=== PATIENT | female | born 1955 | race Caucasian/White ===

== ENCOUNTER → 2016-07-13 | Outpatient (CLI) | payer MEDICARE | LOC: GMAM 16:54 | PROVIDERS: ATTEND Family Medicine | DX: R30.0 Dysuria (principal); E03.9 Hypothyroidism, unspecified ==

== ENCOUNTER → 2016-10-12 | Outpatient (CLI) | payer MEDICARE | END | disposition home or self-care (01) | LOC: GMAM 10:15 | PROVIDERS: ATTEND Family Medicine | DX: D51.3 Other dietary vitamin B12 deficiency anemia (principal); E03.9 Hypothyroidism, unspecified ==

== ENCOUNTER → 2016-10-25 | Outpatient (CLI) | payer MEDICARE ==
--- NOTE | 2016-10-25 16:54 | MAM ---
History: Well woman exam. Date of exam: 10/25/2016 Services provided: Bilateral full field digital screening mammography. CAD, the images were reviewed with R2 computer aided detection. FINDINGS: Glandular tissue is scattered nodular contour with increased mammographic density. Comparison with 2011 study. No dominant mass, architectural distortion or clustered microcalcification. No significant change in pattern when compared with remote study. IMPRESSION: Benign exam Recommendation: Routine annual mammography BIRAD CATEGORY: 2 BENIGN . Electronically signed by: Janis Carmen MD 10/25/2016 4:54 PM CDT Workstation: [id number]
== END | disposition home or self-care (01) ==
LOC: MAMMO 14:30
PROVIDERS: ATTEND Family Medicine
DX: Z12.31 Encounter for screening mammogram for malignant neoplasm of breast (principal)

== ENCOUNTER → 2016-12-14 | Outpatient (CLI) | payer MEDICARE ==
--- NOTE | 2016-12-15 10:55 | MRI ---
EXAM DESCRIPTION: Cervical Spine CLINICAL HISTORY: 61 years, Female, CERVICAL DISC DISORDER neck pain, right shoulder pain COMPARISON: None. FINDINGS: Sagittal and axial sequences. Bone marrow and cord signal unremarkable. Reversal of cervical lordosis compatible muscular spasm. C2-3 unremarkable. Minimal bulge centrally to the left C3-4. At C4-5 small central broad-based protrusion slightly flattening thecal sac. At C5-6, diffuse bulging disc osteophyte asymmetric to the left. Facet degenerative change. Flattening and left-sided thecal sac and narrowing the left exit foramen. At C6-7, broad-based right-sided protrusion about 4 mm flattens the thecal sac and narrows the exit foramen. C7-T1 unremarkable. IMPRESSION: 1. Broad-based right-sided protrusion C6-7 flattening the thecal sac and narrowing the right exit foramen 2. Diffuse bulging disc osteophyte C5-6 asymmetric to the left. Flattening the left-sided thecal sac and narrowing the left exit foramen 3. Mild disc changes C4-5 and C3-4 as discussed. Reversal of cervical lordosis compatible muscular spasm Electronically signed by: Ryan Jenkins MD 12/15/2016 10:53 AM CDT
--- NOTE | 2016-12-15 12:00 | MRI ---
EXAM DESCRIPTION: Lumbar Spine w/o Contrast CLINICAL HISTORY: 61 years, Female, LOW BACK PAIN bilateral leg pain and numbness COMPARISON: None. FINDINGS: Sagittal and axial sequences. Chronic appearing compression injury of the L1 vertebral body. Compression deformity predominantly involves the anterior inferior portion extending to the mid body. This may have been a hyperflexion injury. Anterior height of L1 about 7 mm versus about 2.7 cm of L2. Other visualized vertebral bodies have normal height and marrow signal. Conus terminates at L1. About 3 mm retrolisthesis L1-2 with bulging disc osteophyte asymmetric to the left. Facet degenerative change. Slight left foraminal narrowing and lateral recess encroachment. Mild narrowing and bulging disc L2-3 with facet degenerative change. No significant stenosis. At L3-4 diffuse bulging disc asymmetric to the right. Slight right foraminal narrowing and probable slight impingement on the exiting right L3 root. Mild bulge and facet degenerative change L4-5 without significant stenosis. L5-S1 within normal IMPRESSION: 1. Chronic appearing moderate anterior inferior compression L1. Slight retrolisthesis L1-2 with bulging disc osteophyte asymmetric to the left. Slight left foraminal narrowing and lateral recess encroachment. 2. Diffuse bulging disc L3-4 asymmetric to the right with probable impingement on the exiting right L3 root 3. Other mild disc changes present as discussed Electronically signed by: Ryan Jenkins MD 12/15/2016 11:58 AM CDT
== END | disposition home or self-care (01) ==
LOC: MRI 13:03
PROVIDERS: ATTEND Psychiatry & Neurology Neurology
DX: M50.01 Cervical disc disorder with myelopathy, high cervical region (principal); G61.81 Chronic inflammatory demyelinating polyneuritis; M35.1 Other overlap syndromes; G47.33 Obstructive sleep apnea (adult) (pediatric)

== ENCOUNTER → 2017-02-24 | Outpatient (CLI) | payer MEDICARE | END | disposition home or self-care (01) | LOC: GMA 14:41 | PROVIDERS: ATTEND Physician Assistant | DX: N39.0 Urinary tract infection, site not specified (principal) ==

== ENCOUNTER → 2017-04-25 | Outpatient (CLI) | payer MEDICARE | END | disposition home or self-care (01) | LOC: GMAM 15:46 | PROVIDERS: ATTEND Family Medicine | DX: E03.9 Hypothyroidism, unspecified (principal); E53.8 Deficiency of other specified B group vitamins ==

== ENCOUNTER → 2017-05-23 | Outpatient (CLI) | payer MEDICARE | END | disposition home or self-care (01) | LOC: GMA 14:49 | PROVIDERS: ATTEND Physician Assistant | DX: N39.0 Urinary tract infection, site not specified (principal) ==

== ENCOUNTER → 2017-06-17 | Outpatient (CLI) | payer MEDICARE | END | disposition home or self-care (01) | LOC: GMAM 14:10 | PROVIDERS: ATTEND Family Medicine | DX: N39.0 Urinary tract infection, site not specified (principal) ==

== ENCOUNTER → 2017-11-15 | Outpatient (CLI) | payer MEDICARE | LOC: GMAM 10:44 | PROVIDERS: ATTEND Family Medicine | DX: E03.9 Hypothyroidism, unspecified (principal); D51.9 Vitamin B12 deficiency anemia, unspecified ==

== ENCOUNTER → 2018-02-07 | Outpatient (CLI) | payer MEDICARE | LOC: GMATM 19:36 | PROVIDERS: ATTEND Nurse Practitioner Family | DX: N39.0 Urinary tract infection, site not specified (principal) ==

== ENCOUNTER → 2018-04-25 | Outpatient (CLI) | payer MEDICARE | LOC: GMAM 11:09 | PROVIDERS: ATTEND Family Medicine | DX: R07.2 Precordial pain (principal); E03.9 Hypothyroidism, unspecified ==

== ENCOUNTER 2018-04-27 10:36 | Emergency (ER) | payer MEDICARE ==
[2018-04-27 10:50] VITALS: TEMP 98.3
--- NOTE | 2018-04-27 11:42 | CT ---
PROCEDURE: CT Lumbar Spine Without Intravenous Contrast CLINICAL INDICATION: The patient is 63 years old and is Female; fall with severe pain approx l2-3 TECHNIQUE: Axial computed tomography images of the lumbar spine without intravenous contrast. Sagittal and coronal reformatted images were created and reviewed. COMPARISON: Prior lumbar spine magnetic resonance imaging from 12/14/2016 FINDINGS: VERTEBRAE: There is a new inferior endplate compression presumed osteoporotic fracture anteriorly involving the T12 vertebral body with relative height preservation at this time. The fracture does extend to the posterior inferior endplate with minimal buckling and no overt retropulsion. There is a stable L1 vertebral body inferior endplate compression fracture with 35 percent loss of height and mild retropulsion. There is NO fracture or malalignment identified in the lumbar spine from L2-L4. There are 5 non-rib bearing lumbar vertebral bodies. Vertebral body heights are maintained from L2-L4. Alignment is maintained. The spinous processes and the transverse processes are intact. OTHER BONES/JOINTS: There is an old healed LEFT 12th rib fracture. It is located medially. DISCS/SPINAL CANAL/NEURAL FORAMINA: The disc spaces are intact. There is NO large disc herniation with no significant disc bulges at the lower levels. SOFT TISSUES: Unremarkable. VASCULATURE: There are atheromatous vascular calcifications of the aortoiliac system. PANCREAS: There are fatty involutional changes of the pancreas. NO findings to suggest pancreatitis. OTHER FINDINGS: There is NO paravertebral hematoma. IMPRESSION: 1. There is a new inferior endplate compression presumed osteoporotic fracture anteriorly involving the T12 vertebral body with relative height preservation at this time. The fracture does extend to the posterior inferior endplate with minimal buckling and no overt retropulsion. This fracture appears to be acute. 2. There is a stable L1 vertebral body inferior endplate compression fracture with 35 percent loss of height and mild retropulsion. Electronically signed by: Gilmar Rapp MD 04/27/2018 11:40 AM [employer]
--- NOTE | 2018-04-27 11:46 | RAD ---
PROCEDURE: XR Left Wrist Complete, 3 or More Views CLINICAL INDICATION: The patient is 63 years old and is Female; fall last night, ulnar sided pain TECHNIQUE: PA, oblique and lateral radiographs of the LEFT wrist were performed without prior studies submitted for comparison. COMPARISON: No relevant prior studies available. FINDINGS: BONES/JOINTS: There is NO acute fracture or dislocation in the LEFT wrist. There is mild degeneration of the 1st carpometacarpal joint and involving the carpal rows. There is neutral ulnar variance. The scapholunate distance is intact. The scaphoid is intact. The joint spaces are maintained. There is mild bony demineralization. The ulnar styloid is intact. SOFT TISSUES: There is NO radiopaque foreign body. There is no appreciable soft tissue swelling. IMPRESSION: 1. There is NO acute fracture or dislocation in the LEFT wrist. 2. There is mild degeneration of the 1st carpometacarpal joint and involving the carpal rows. Electronically signed by: Gilmar Rapp MD 04/27/2018 11:45 AM [facility]
[2018-04-27] MEDS ORDERED: MORPHINE SULFATE INJ 10 MG/ML VIAL IV ONE ×2 (12:20→16:57)
--- NOTE | 2018-04-27 12:28 | ED.PDOC ---
History of Present Illness - General Chief Complaint: Back Pain or Injury Stated Complaint: low back pain Time Seen by Provider: 04/27/18 10:42 Source: patient, family Exam Limitations: no limitations - History of Present Illness Initial Comments: The patient is a 63-year-old female presenting to the emergency room after having fallen backwards last night. She landed on her rear end but is having pain in her upper lumbar to lower thoracic spine. No new neurological changes. She has had a previous compression fracture before. She does have chronic neuropathy and decreased sensation to bilateral lower extremities. No new weakness and no incontinence. There is no visible bruising. The patient is having a very difficult time getting around and performing her activities of daily living. She is morbidly obese. the patient has a history of morbid obesity, mixed connective tissue disease, rheumatoid arthritis, peripheral neuropathy, chronic back pain, gastroesophageal reflux disease, hypercholesterolemia, coronary artery disease, Graves' disease, recurrent urinary tract infections. Severity: severe Improving Factors: immobilization Worsening Factors: movement Associated Symptoms: denies symptoms Allergies/Adverse Reactions: Allergies Pantoprazole [From Protonix] Allergy (Verified 07/19/12 08:43) Penicillins Allergy (Verified 07/19/12 08:43) Home Medications: Ambulatory Orders Aspirin [Aspirin EC] 81 mg PO DAILY 04/08/14 Atorvastatin Calcium [Lipitor] 40 mg PO DAILY 04/08/14 Bifidobacterium Infantis [Align] 4 mg PO DAILY 04/08/14 Furosemide [Lasix] 40 mg PO DAILY 04/08/14 HYDROcodone 10MG/APAP 325MG [[place] 10/325] 2 tab PO TID 04/08/14 Hydroxychloroquine [Plaquenil] 200 mg PO BID 04/08/14 Levothyroxine Sodium [Synthroid] 137 mcg PO 0700 04/08/14 Morphine Sulfate [Morphine Sulfate ER] 30 mg PO TID 04/08/14 Pregabalin [Lyrica] 100 mg PO BID 04/08/14 Docusate Sodium 200 mg PO DAILY 04/27/18 Omeprazole Magnesium [Prilosec Otc] 20 mg PO DAILY 04/27/18 Potassium Chloride [Micro-K] 10 meq PO DAILY 04/27/18 Venlafaxine HCl [Effexor Tab] 150 mg PO DAILY 04/27/18 predniSONE 20 mg PO DAILY 04/27/18 Review of Systems - Review of Systems Constitutional: States: no symptoms reported EENTM: States: no symptoms reported Respiratory: States: no symptoms reported Cardiology: States: no symptoms reported Gastrointestinal/Abdominal: States: no symptoms reported Genitourinary: States: no symptoms reported Musculoskeletal: States: see HPI, back pain Skin: States: no symptoms reported Neurological: States: see HPI Endocrine: States: no symptoms reported All other Systems: No Change from Baseline Past Medical History (General) - Patient Medical History Hx Seizures: No Hx Stroke: No Hx Asthma: No Hx of COPD: Yes Hx Cardiac Disorders: Yes - CAD and stints Hx Congestive Heart Failure: No Hx Pacemaker: No Hx Hypertension: No Hx Diabetes: No Hx MRSA: Yes - Urine 2014, 2015 MRSA Source:: Urine - Vaccination History Hx Influenza Vaccination: Yes Hx Pneumococcal Vaccination: No - Social History Hx Tobacco Use: Yes Hx Alcohol Use: No Hx Substance Use: No Hx Physical Abuse: No Hx Emotional Abuse: No Family Medical History - Family History Mother Family History: Unknown Physical Exam - Physical Exam General Appearance: Alert, Comfortable, No apparent distress Eye Exam: bilateral normal Ears, Nose, Throat: hearing grossly normal, normal ENT inspection, normal pharynx Neck: full range of motion, supple Respiratory: lungs clear, normal breath sounds, no respiratory distress, no accessory muscle use Cardiovascular/Chest: normal peripheral pulses, no edema, other - regular rate Peripheral Pulses: radial,right: 2+, radial,left: 2+, dorsalis pedis,right: 2+, dorsalis pedis,left: 2+ Gastrointestinal/Abdominal: non tender, soft Rectal Exam: deferred Back Exam: CVA tenderness (R), CVA tenderness (L), muscle spasm, vertebral tenderness Extremity: non-tender, normal inspection, normal capillary refill 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 The patient is in significant pain and unable to perform her activities of daily living. She would benefit from an admission for pain control and significant rehabilitation to get her back to a functional state. The patient has received a dose of morphine here. [facility] rehabilitation has been contacted for potential placement for purposes as stated above. Sebastian wrap will be used on the left wrist. she could benefit from evaluation by a spinal surgeon to see if it would be worthwhile to perform kyphoplasty on her in the coming weeks to prevent further increase in chronic pain issues as well as further limitations over time given her osteoporosis. the patient may also benefit from some form of a external stabilization device, such as a TLSO. Given her body habitus however this may prove somewhat difficult. 04/27/18 12:36 04/27/18 15:17 Dr. Cohen from [facility] as requested that we discussed the patient with neurosurgery prior to any acceptance. Dr. Bran, neurosurgery has been consulted by phone on the patient. Based upon the history, exam and radiological findings relayed to him agrees with the TLSO and pain control. Plan on transfer. - Results/Orders Results/Orders: CT scan of the lumbar spine shows what appears to be a new compression fracture at the inferior endplate of T12. It does extend posterior inferiorly but there is no focal buckling or retropulsion. There does appear to be an old L1 fracture that is stable. It does have significant height loss however. X-ray of the left wrist shows no evidence of dislocation or fracture. Departure - Departure Clinical Impression: Inability to perform activities of daily living Compression fracture of thoracic vertebra Qualifiers: Encounter type: initial encounter Fracture type: closed Qualified Code(s): S22.000A - Wedge compression fracture of unspecified thoracic vertebra, initial encounter for closed fracture Left wrist sprain Qualifiers: Encounter type: initial encounter Qualified Code(s): S63.502A - Unspecified sprain of left wrist, initial encounter Fall in home Qualifiers: Encounter type: initial encounter Qualified Code(s): W19.XXXA - Unspecified fall, initial encounter Disposition: Discharge to Rehab Facility Condition: Fair Departure Forms: ED Discharge - Pt. Copy, Patient Portal Self Enrollment Diet: regular diet Referrals: Gary Lee MD [Primary Care Provider] - 1-2 Weeks Home Medications: Ambulatory Orders Aspirin [Aspirin EC] 81 mg PO DAILY 04/08/14 Atorvastatin Calcium [Lipitor] 40 mg PO DAILY 04/08/14 Bifidobacterium Infantis [Align] 4 mg PO DAILY 04/08/14 Furosemide [Lasix] 40 mg PO DAILY 04/08/14 HYDROcodone 10MG/APAP 325MG [[place] 10/325] 2 tab PO TID 04/08/14 Hydroxychloroquine [Plaquenil] 200 mg PO BID 04/08/14 Levothyroxine Sodium [Synthroid] 137 mcg PO 0700 04/08/14 Morphine Sulfate [Morphine Sulfate ER] 30 mg PO TID 04/08/14 Pregabalin [Lyrica] 100 mg PO BID 04/08/14 Docusate Sodium 200 mg PO DAILY 04/27/18 Omeprazole Magnesium [Prilosec Otc] 20 mg PO DAILY 04/27/18 Potassium Chloride [Micro-K] 10 meq PO DAILY 04/27/18 Venlafaxine HCl [Effexor Tab] 150 mg PO DAILY 04/27/18 predniSONE 20 mg PO DAILY 04/27/18 Transfer to Outside Facility - Transfer Information Accepting Provider:: dr cohen Accepting Facility: [facility] Reason for Transfer: specialized care not available
[2018-04-27] MEDS ORDERED: CYCLOBENZAPRINE HCL 10 MG TAB PO ONE (16:09)
[2018-04-27 17:18] VITALS: BP 102/71; O2SAT 93
== END 2018-04-27 17:18 ==
LOC: ER 10:36
DX: S22.000A Wedge compression fracture of unspecified thoracic vertebra, initial encounter for closed fracture (principal); S63.502A Unspecified sprain of left wrist, initial encounter; E66.01 Morbid (severe) obesity due to excess calories; G62.9 Polyneuropathy, unspecified; M06.9 Rheumatoid arthritis, unspecified; G89.29 Other chronic pain; E78.00 Pure hypercholesterolemia, unspecified; K21.9 Gastro-esophageal reflux disease without esophagitis; I25.10 Atherosclerotic heart disease of native coronary artery without angina pectoris; E05.00 Thyrotoxicosis with diffuse goiter without thyrotoxic crisis or storm; J44.9 Chronic obstructive pulmonary disease, unspecified; W18.39XA Other fall on same level, initial encounter; Y92.009 Unspecified place in unspecified non-institutional (private) residence as the place of occurrence of the external cause; Z79.82 Long term (current) use of aspirin; Z88.8 Allergy status to other drugs, medicaments and biological substances; Z79.899 Other long term (current) drug therapy; Z88.0 Allergy status to penicillin; Z95.5 Presence of coronary angioplasty implant and graft; Z87.891 Personal history of nicotine dependence
CPT/HCPCS: 72131; 73110; J2270

== ENCOUNTER 2018-06-20 17:24 | Observation (INO) | payer MEDICARE ==
[2018-06-20] MEDS ORDERED: IPRATROPIUM/ALBUTEROL 3 ML VIAL NEB ONE (17:48)
--- NOTE | 2018-06-20 17:59 | ED.PDOC ---
History of Present Illness - General Chief Complaint: Respiratory Problem Stated Complaint: shortness of breath,cough,fever Time Seen by Provider: 06/20/18 17:45 Source: patient, family Exam Limitations: no limitations - History of Present Illness Initial Comments: Patient presents with increasing light-headedness for three days. The home health nurse measured her oxygen saturations in the 70s. She went to her pcp and they got the same result so she was sent here. She denies dyspnea or chest pain. She had a compression fracture two months ago and has been mostly bed ridden since then. She denies history of DVT or PE. She had angina with a stent placement x one , four years ago. Denies history of AMI or COPD. She has had increasing trouble ambulating over the past several years due to back problems and obesity. No other complaints. Timing/Duration: other - 3 days Severity: moderate Improving Factors: nothing Worsening Factors: nothing Associated Symptoms: denies symptoms Allergies/Adverse Reactions: Allergies Pantoprazole [From Protonix] Allergy (Verified 07/19/12 08:43) Penicillins Allergy (Verified 07/19/12 08:43) Sulfa Antibiotics Allergy (Verified 06/20/18 17:46) Home Medications: Ambulatory Orders Aspirin [Aspirin EC] 81 mg PO DAILY 04/08/14 Atorvastatin Calcium [Lipitor] 40 mg PO DAILY 04/08/14 Bifidobacterium Infantis [Align] 4 mg PO DAILY 04/08/14 Furosemide [Lasix] 40 mg PO DAILY 04/08/14 HYDROcodone 10MG/APAP 325MG [[place] 10/325] 2 tab PO TID 04/08/14 Hydroxychloroquine [Plaquenil] 200 mg PO BID 04/08/14 Levothyroxine Sodium [Synthroid] 137 mcg PO 0700 04/08/14 Morphine Sulfate [Morphine Sulfate ER] 30 mg PO TID 04/08/14 Pregabalin [Lyrica] 100 mg PO BID 04/08/14 Docusate Sodium 200 mg PO DAILY 04/27/18 Omeprazole Magnesium [Prilosec Otc] 20 mg PO DAILY 04/27/18 Potassium Chloride [Micro-K] 10 meq PO DAILY 04/27/18 Venlafaxine HCl [Effexor Tab] 150 mg PO DAILY 04/27/18 predniSONE 20 mg PO DAILY 04/27/18 Review of Systems - Review of Systems Constitutional: States: no symptoms reported EENTM: States: no symptoms reported Respiratory: States: no symptoms reported Cardiology: States: no symptoms reported Gastrointestinal/Abdominal: States: no symptoms reported Genitourinary: States: no symptoms reported Musculoskeletal: States: see HPI Skin: States: no symptoms reported Neurological: States: see HPI Endocrine: States: no symptoms reported Hematologic/Lymphatic: States: no symptoms reported Past Medical History (General) - Patient Medical History Hx Seizures: No Hx Stroke: No Hx Asthma: No Hx of COPD: Yes Hx Cardiac Disorders: Yes - CAD and stints Hx Congestive Heart Failure: No Hx Pacemaker: No Hx Hypertension: No Hx Diabetes: No Hx MRSA: Yes - Urine 2014, 2015 MRSA Source:: Urine - Vaccination History Hx Influenza Vaccination: Yes Hx Pneumococcal Vaccination: Yes - Social History Hx Tobacco Use: Yes Hx Alcohol Use: No Hx Substance Use: No Hx Physical Abuse: No Hx Emotional Abuse: No Family Medical History - Family History Mother Family History: Unknown Physical Exam - Physical Exam General Appearance: Alert Eye Exam: bilateral normal Ears, Nose, Throat: hearing grossly normal, normal ENT inspection Neck: non-tender, full range of motion, supple Respiratory: lungs clear, normal breath sounds Cardiovascular/Chest: normal peripheral pulses, regular rate, rhythm, no edema Gastrointestinal/Abdominal: normal bowel sounds, non tender, soft Extremity: other - 2 + pitting edema of the left ankle. Right ankle has trace edema. Neurologic: no motor/sensory deficits, alert, normal mood/affect, oriented x 3 Skin Exam: normal color Lymphatic: no adenopathy Progress - Progress Progress: 06/20/18 21:45 Laboratory Tests 06/20/18 06/20/18 06/20/18 18:04 18:04 18:04 WBC 6.8 RBC 4.46 Hgb 12.2 Hct 38.5 MCV 86.4 MCH 27.5 MCHC 31.8 L RDW 15.1 H Plt Count 246 MPV 8.8 Absolute Neuts (auto) 6.00 Absolute Lymphs (auto) 0.60 L Absolute Monos (auto) 0.10 L Absolute Eos (auto) 0.10 Absolute Basos (auto) 0.00 Neutrophils % 88.6 H Lymphocytes % 8.4 L Monocytes % 1.7 L Eosinophils % 0.9 L Basophils % 0.4 PT 9.8 INR 0.98 PTT (SP) 25.2 D-Dimer, Quantitative Sodium 141 Potassium 4.1 Chloride 101 Carbon Dioxide 31 Anion Gap 13.1 BUN 11 Creatinine 0.65 BUN/Creatinine Ratio 16.9 Random Glucose 161 H Serum Osmolality 284.1 Calcium 9.1 Total Bilirubin 0.4 AST 30 ALT 25 Alkaline Phosphatase 93 Creatine Kinase CK-MB (CK-2) CK-MB (CK-2) % Troponin I B-Natriuretic Peptide Serum Total Protein 6.9 Albumin 3.7 Globulin 3.2 Albumin/Globulin Ratio 1.2 06/20/18 06/20/18 18:04 18:04 WBC RBC Hgb Hct MCV MCH MCHC RDW Plt Count MPV Absolute Neuts (auto) Absolute Lymphs (auto) Absolute Monos (auto) Absolute Eos (auto) Absolute Basos (auto) Neutrophils % Lymphocytes % Monocytes % Eosinophils % Basophils % PT INR PTT (SP) D-Dimer, Quantitative 1.01 H* Sodium Potassium Chloride Carbon Dioxide Anion Gap BUN Creatinine BUN/Creatinine Ratio Random Glucose Serum Osmolality Calcium Total Bilirubin AST ALT Alkaline Phosphatase Creatine Kinase 23 L CK-MB (CK-2) 1.0 CK-MB (CK-2) % Not Reportable Troponin I < 0.02 B-Natriuretic Peptide 38.5 Serum Total Protein Albumin Globulin Albumin/Globulin Ratio D-dimer elevated. CTA chest was negative. CXR unremarkable. WBC normal. Patient had no laboratory nor radiological explanation for the hypoxia. When she had conversations with nursing staff, her oxygen saturations increased into the 90s. However, at rest she required one liter by NC. She was admitted for hypoxia and treatment for LE DVT was started until ultrasound could come in the morning. She received 130 mg Lovenox SC in the E.D. Jhonny Millard agreed to admit the patient. Departure - Departure Clinical Impression: Hypoxia, Elevated d-dimer Disposition: Admit Patient Condition: Fair Departure Forms: ED Discharge - Pt. Copy, Patient Portal Self Enrollment Diet: other - as pre hospitalist Activity: as per physical therapy, other Referrals: Gary eLe MD [Primary Care Provider] - 1-2 Weeks Home Medications: Ambulatory Orders Aspirin [Aspirin EC] 81 mg PO DAILY 04/08/14 Atorvastatin Calcium [Lipitor] 40 mg PO DAILY 04/08/14 Bifidobacterium Infantis [Align] 4 mg PO DAILY 04/08/14 Furosemide [Lasix] 40 mg PO DAILY 04/08/14 HYDROcodone 10MG/APAP 325MG [[place] 10/325] 2 tab PO TID 04/08/14 Hydroxychloroquine [Plaquenil] 200 mg PO BID 04/08/14 Levothyroxine Sodium [Synthroid] 137 mcg PO 0700 04/08/14 Morphine Sulfate [Morphine Sulfate ER] 30 mg PO TID 04/08/14 Pregabalin [Lyrica] 100 mg PO BID 04/08/14 Docusate Sodium 200 mg PO DAILY 04/27/18 Omeprazole Magnesium [Prilosec Otc] 20 mg PO DAILY 04/27/18 Potassium Chloride [Micro-K] 10 meq PO DAILY 04/27/18 Venlafaxine HCl [Effexor Tab] 150 mg PO DAILY 04/27/18 predniSONE 20 mg PO DAILY 04/27/18
--- NOTE | 2018-06-20 18:26 | RAD ---
EXAM: Chest,1 View CLINICAL INDICATION: Shortness of breath COMPARISON: 07/19/2009 FINDINGS: A single view of the chest was obtained. The heart size is normal. The pulmonary vascularity is unremarkable. The lungs are clear. There is no consolidation, infiltrate, pleural effusion, or pneumothorax. IMPRESSION: No evidence of active pulmonary disease. Electronically signed by: Adrian Duncan MD 06/20/2018 6:25 PM [facility]
--- NOTE | 2018-06-20 19:36 | CT ---
EXAM: CTA chest with contrast CLINICAL INDICATION: Tachycardia, lightheadedness, hypoxia. COMPARISON: None. TECHNIQUE: CTA of the chest was performed using contiguous axial 2.5mm postcontrast sections through the chest including IV contrastwith 3-D reconstructions. This exam was performed according to our departmental dose-optimization program, which includes automated exposure control, adjustment of the mA and/or kV according to patient size and/or use of iterative reconstruction technique. FINDINGS: There is no evidence of pulmonary embolism. There are no findings to suggest aortic dissection. There are no enlarged mediastinal or hilar lymph nodes. The visualized portions of the upper abdominal structures are unremarkable. There is mild peripheral scarring and subsegmental atelectasis in the lungs bilaterally. No pneumothorax or pleural effusion is identified. The lungs are otherwise clear. IMPRESSION: No evidence of pulmonary embolism or other acute process in the chest at this time. Electronically signed by: Adrian Duncan MD 06/20/2018 7:35 PM [employer]
[2018-06-20] MEDS ORDERED: HYDROcodone 10MG/APAP 325MG 1 EA TAB PO ONE (20:25)
[2018-06-20] MEDS ORDERED: ENOXAPARIN SODIUM 30 MG/0.3 ML SYG SUBCU ONE (22:09)
[2018-06-20] MEDS ORDERED: ENOXAPARIN SODIUM 100 MG/ML SYG SUBCU ONE (22:09)
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
[2018-06-20] MEDS ORDERED: IV SET AND CAP CHANGE INJ INJ SCH (23:00)
[2018-06-20] MEDS ORDERED: SODIUM CHLORIDE 0.9% (FLUSH) 10 ML SYG IV PRN (23:00)
[2018-06-20] MEDS ORDERED: ACETAMINOPHEN 325 MG TAB PO PRN (23:00)
[2018-06-20] MEDS ORDERED: ALBUTEROL SULFATE 2.5 MG/3 ML VIAL NEB PRN (23:00)
[2018-06-21] MEDS ORDERED: cefTRIAXone SODIUM 1 GM in SODIUM CHL 0.9% 50ML MIN-BAG+ 50 ML IVPB SCH (00:30)
[2018-06-21] MEDS ORDERED: cefTRIAXone SODIUM 1 GM VIAL ONE (00:42)
[2018-06-21] MEDS ORDERED: SODIUM CHLORIDE 0.9% 50ML 50 ML ONE (00:42)
[2018-06-21] MEDS ORDERED: IPRATROPIUM/ALBUTEROL 3 ML VIAL INH SCH (08:00)
[2018-06-21] MEDS ORDERED: HYDROcodone 10MG/APAP 325MG 1 EA TAB PO PRN (10:40)
[2018-06-21] MEDS ORDERED: FUROSEMIDE 40 MG TAB PO SCH (10:45)
[2018-06-21] MEDS ORDERED: NON-FORMULARY MEDICATION 1 EA MIS (Hydroxychloroquine [Plaquenil] 200 MG) PO SCH (10:45)
[2018-06-21] MEDS ORDERED: BIFIDOBACTERIUM INFANTIS 4 MG CAP PO SCH (11:00)
[2018-06-21] MEDS ORDERED: ENOXAPARIN SODIUM 100 MG/ML SYG SUBCU SCH ×2 (12:00)
[2018-06-21] MEDS ORDERED: ENOXAPARIN SODIUM 30 MG/0.3 ML SYG SUBCU SCH ×2 (12:00)
[2018-06-21] MEDS ORDERED: NYSTATIN POWDER 15GM BTTL TOP SCH (13:00)
[2018-06-21] MEDS: IPRATROPIUM/ALBUTEROL 3 ML VIAL NEB SCH ×2 (13:11→17:17)
[2018-06-21 13:17] VITALS: BP 124/71; TEMP 97.5; O2SAT 99
--- NOTE | 2018-06-21 14:16 | US ---
EXAM DESCRIPTION: Venous,Lower Extremity LT CLINICAL HISTORY: elevated D-Dimer LLE edema COMPARISON: None Available. TECHNIQUE: Left lower extremity venous grayscale, spectral, and color Doppler sonographic images. FINDINGS: Somewhat limited evaluation due to reduced image quality secondary to body habitus. There is no DVT identified. There is normal color flow observed with good flow augmentation. All deep veins compress normally. IMPRESSION: Negative for DVT Electronically signed by: Stephan Root MD 06/21/2018 2:15 PM [facility]
[2018-06-21] MEDS ORDERED: MORPHINE ER 30 MG TAB PO SCH (15:00)
[2018-06-21] MEDS ORDERED: PREGABALIN 100 MG CAP PO SCH (21:00)
[2018-06-22] MEDS ORDERED: LEVOTHYROXINE SODIUM 0.112 MG, LEVOTHYROXINE SODIUM 0.025 MG PO SCH ×2 (06:30)
[2018-06-22] MEDS ORDERED: LEVOTHYROXINE SODIUM 137 MCG PO SCH (07:00)
[2018-06-22] MEDS ORDERED: DOCUSATE SODIUM 100 MG CAP PO SCH (09:00)
[2018-06-22] MEDS ORDERED: VENLAFAXINE HCL TAB 75 MG TAB PO SCH (09:00)
[2018-06-22] MEDS ORDERED: predniSONE 20 MG TAB PO SCH (09:00)
[2018-06-22] MEDS ORDERED: ATORVASTATIN 20 MG TAB PO SCH (09:00)
[2018-06-22] MEDS ORDERED: ASPIRIN (ENTERIC COATED) 81 MG TAB PO SCH (09:00)
[2018-06-22] MEDS ORDERED: POTASSIUM CHLORIDE 10 MEQ TAB PO SCH (09:00)
== END 2018-06-21 17:00 | disposition home health service (06) ==
LOC: ER 17:24 → MS 22:29
PROVIDERS: ADMIT Nurse Practitioner Family; ATTEND Nurse Practitioner Acute Care
DX: R09.02 Hypoxemia (principal); R06.02 Shortness of breath; R05 Cough; G47.33 Obstructive sleep apnea (adult) (pediatric); N39.0 Urinary tract infection, site not specified; B96.89 Other specified bacterial agents as the cause of diseases classified elsewhere; M32.9 Systemic lupus erythematosus, unspecified; M35.1 Other overlap syndromes; R79.1 Abnormal coagulation profile; R60.0 Localized edema; E03.9 Hypothyroidism, unspecified; G89.21 Chronic pain due to trauma; E66.01 Morbid (severe) obesity due to excess calories; I25.10 Atherosclerotic heart disease of native coronary artery without angina pectoris; M81.0 Age-related osteoporosis without current pathological fracture; Z68.42 Body mass index [BMI] 45.0-49.9, adult; Z79.891 Long term (current) use of opiate analgesic; Z79.1 Long term (current) use of non-steroidal anti-inflammatories (NSAID); Z79.52 Long term (current) use of systemic steroids; Z79.82 Long term (current) use of aspirin; Z79.899 Other long term (current) drug therapy; Z87.440 Personal history of urinary (tract) infections; Z95.5 Presence of coronary angioplasty implant and graft; Z98.84 Bariatric surgery status; Z88.0 Allergy status to penicillin; Z88.2 Allergy status to sulfonamides; Z88.8 Allergy status to other drugs, medicaments and biological substances; Z87.891 Personal history of nicotine dependence
CPT/HCPCS: 96374; 96372 ×2; J0696; J1650 ×2; A4216; J7620 ×3; 85379; 82553; 80053; 36415 ×3; 81001; 85025; 82550; 85730; 85610; 84484; 83880; 83605; 71045; 71275; 93971; 94660; 94640 ×3; 94762; 99285; 93005; G0378

== ENCOUNTER → 2018-09-07 | Outpatient (CLI) | payer MEDICARE ==
--- NOTE | 2018-09-07 15:52 | MRI ---
EXAM DESCRIPTION: Cervical Spine CLINICAL HISTORY: 63 years Female, NECK PAIN COMPARISON: MRI of the cervical spine dated 12/14/2016. TECHNIQUE: Multiplanar, multiecho imaging of the cervical spine was performed without gadolinium administration. FINDINGS: Reversal of the normal lordotic curvature of the cervical spine is noted. The vertebral body heights are well-maintained with no acute compression deformity. Multilevel intervertebral disc space narrowing is noted. The visualized spinal cord demonstrates no signal abnormality. The visualized prevertebral and paravertebral soft tissues appear grossly unremarkable. C2-C3: Disc desiccation is noted. Mild left neural foraminal narrowing is noted secondary to uncovertebral joint arthropathy. C3-C4: Disc desiccation and loss of disc height. However no disc herniation. Mild right neural foraminal narrowing secondary to uncovertebral joint arthropathy. C4-C5: Disc desiccation and loss of disc height with mild disc bulge. Mild bilateral neural foraminal narrowing is noted secondary to uncovertebral joint arthropathy. C5-C6: Disc desiccation and loss of disc height. Posterior disc osteophyte complex asymmetric to the left and uncovertebral joint arthropathy with resultant mild to moderate central canal stenosis, mild to moderate right and moderate to severe left neural foraminal narrowing. C6-C7: Disc desiccation and loss of disc height with a posterior disc bulge asymmetric to the right. There is moderate right and mild left neural foraminal narrowing. C7-T1: No evidence of disc herniation. No significant canal stenosis or neural foraminal narrowing. IMPRESSION: Multilevel degenerative disc disease and uncovertebral joint arthropathy throughout the cervical spine with changes worse at C5-C6 level on the left and C6-C7 level on the right. Electronically signed by: Michelle Valdes MD 09/07/2018 3:49 PM CDT
--- NOTE | 2018-09-07 15:58 | MRI ---
EXAM: Lumbar Spine w/o Contrast CLINICAL HISTORY: LOW BACK PAIN COMPARISON STUDY: CT lumbar spine April 27, 2018 MRI lumbar spine December 14, 2016 TECHNICAL: MRI images of the lumbar spine were obtained in multiple planes and sequences without IV contrast administration. FINDINGS: There are compression fractures of the T12 and L1 vertebral bodies. Compared to the MRI in November 2016, the L1 vertebral body compression fracture has not changed. The T12 compression fracture was not present on the previous MRI and there are subtle changes on the CT scan in 2018. There is no compression deformity in 2018. The amount of compression of the T12 vertebral body is approximately 60% of its original vertebral body height. There is subtle edema-like change in the bone marrow suggesting that this is subacute and not chronic. There is a slight posterior buckling of the cortex and minimal narrowing of the canal without compression of the conus medullaris. There is no large focal disc herniation at T11-12 or T12-L1. The foramina are patent. There is a minimal diffuse annular bulge at L1-2 with no focal disc herniation, canal stenosis or neurologic impingement. L2-3 and L3-4 both demonstrate disc desiccation and mild disc height loss. There are endplate protrusions less than 3 mm at L2-3 and 4 mm at L3-4. There is no central spinal canal stenosis. There are no lateral herniations causing nerve root impingement. There are moderate degenerative changes of facets. L4-5 and L5-S1 show mild diffuse annular bulges but no focal disc herniation, canal stenosis or nerve root impingement. IMPRESSION: 1. Chronic compression deformity of L1 has not changed. 2. Subacute 60% compression of one of T12 is new compared to prior studies. There are no posterior displaced fracture fragments or central spinal canal stenosis. 3. 4 mm central disc protrusion at L3-4 indents the thecal sac but does not cause canal stenosis. There is no evidence of neurologic compression at any level. Electronically signed by: Guicho Vega MD 09/07/2018 3:54 PM CDT
--- NOTE | 2018-09-07 16:07 | MRI ---
EXAM: Thoracic Spine w/o Contrast CLINICAL HISTORY: UPPER BACK PAIN COMPARISON STUDY: Superior images from the MRI of the lumbar spine TECHNICAL: Noncontrast MRI images were acquired through the thoracic spine in multiple planes and multiple sequences. FINDINGS: There is a T12 vertebral body compression fracture of approximately 60%. There is mild buckling of the posterior cortex but no posterior displaced fracture fragment. The posterior buckling is less than 4 mm. There is no compression of the spinal cord or conus medullaris. Small disc protrusions are present at T11-T12 and T12-L1 and these bulges are less than 3 mm. There is no central spinal canal stenosis. The nerve roots exit without visible impingement. No other thoracic spine fractures identified. There is no central disc herniation at any level. There is no spinal cord compression or spinal cord mass. The curvature of the midthoracic spine convex to the right. The curvature is 9 degrees. IMPRESSION: 1. 60% subacute compression fracture of the T12 vertebral body with 3 mm of posterior buckling but no spinal cord compression. 2. Chronic L1 compression fracture. 3. Less than 4 mm disc protrusions at T11-12 and T12-L1 but no neurologic impingement. 4. 9 degree dextroscoliosis. Electronically signed by: Guicho Vega MD 09/07/2018 4:04 PM CDT
== END ==
LOC: MRI 07:02
PROVIDERS: ATTEND Nurse Practitioner Family
DX: M50.323 Other cervical disc degeneration at C6-C7 level (principal); M50.322 Other cervical disc degeneration at C5-C6 level; M48.54XA Collapsed vertebra, not elsewhere classified, thoracic region, initial encounter for fracture; M51.24 Other intervertebral disc displacement, thoracic region; M41.84 Other forms of scoliosis, thoracic region; S32.000S Wedge compression fracture of unspecified lumbar vertebra, sequela; M51.26 Other intervertebral disc displacement, lumbar region; R30.0 Dysuria

== ENCOUNTER → 2018-11-22 | Outpatient (CLI) | payer MEDICARE | LOC: BFHH 13:01 | PROVIDERS: ATTEND Family Medicine | DX: N39.0 Urinary tract infection, site not specified (principal) ==

== ENCOUNTER → 2018-12-11 | Outpatient (CLI) | payer MEDICARE | LOC: GMAM 12:14 | PROVIDERS: ATTEND Family Medicine | DX: I50.9 Heart failure, unspecified (principal); M32.10 Systemic lupus erythematosus, organ or system involvement unspecified; M06.9 Rheumatoid arthritis, unspecified; I10 Essential (primary) hypertension; S32.019D Unspecified fracture of first lumbar vertebra, subsequent encounter for fracture with routine healing ==

== ENCOUNTER → 2019-01-02 | Outpatient (CLI) | payer MEDICARE | LOC: GMAM 14:21 | PROVIDERS: ATTEND Family Medicine | DX: N39.0 Urinary tract infection, site not specified (principal) ==

== ENCOUNTER → 2019-02-12 | Outpatient (CLI) | payer MEDICARE | LOC: BFHH 14:26 | PROVIDERS: ATTEND Family Medicine | DX: N39.0 Urinary tract infection, site not specified (principal) ==

== ENCOUNTER → 2019-03-06 | Outpatient (CLI) | payer MEDICARE ==
--- NOTE | 2019-03-06 15:11 | RAD ---
EXAM DESCRIPTION: Shoulder,Right 2 or More Views CLINICAL HISTORY: 64 years Female, PAIN IN RIGHT SHOULDER COMPARISON: None. Findings: Moderate acromioclavicular osteoarthritis. Moderate glenohumeral osteoarthritis. No acute fracture or dislocation is identified. No focal soft tissue swelling. There is a 4 mm intra-articular body in the subacromial space. Visualized chest is clear. Atherosclerotic plaque in the thoracic aorta. IMPRESSION: Chronic degenerative changes in the right shoulder. No evidence of acute process. Electronically signed by: Marquis Gorman MD 03/06/2019 3:09 PM CDT
== END ==
LOC: RAD 08:30
PROVIDERS: ATTEND Orthopaedic Surgery
DX: M19.011 Primary osteoarthritis, right shoulder (principal)

== ENCOUNTER → 2019-06-12 | Outpatient (CLI) | payer MEDICARE | LOC: GMAM 12:00 | PROVIDERS: ATTEND Family Medicine | DX: R19.7 Diarrhea, unspecified (principal) ==

== ENCOUNTER 2019-08-15 | Inpatient (IN) | payer MEDICARE | END 2019-08-17 12:45 | disposition home or self-care (01) | DRG 871 | PROVIDERS: ADMIT Nurse Practitioner Acute Care | DX: A41.9 Sepsis, unspecified organism (principal); J10.00 Influenza due to other identified influenza virus with unspecified type of pneumonia; N39.0 Urinary tract infection, site not specified; J44.0 Chronic obstructive pulmonary disease with (acute) lower respiratory infection; G61.81 Chronic inflammatory demyelinating polyneuritis; Z68.41 Body mass index [BMI] 40.0-44.9, adult; E87.6 Hypokalemia; R19.7 Diarrhea, unspecified; M06.9 Rheumatoid arthritis, unspecified; I11.0 Hypertensive heart disease with heart failure; G89.4 Chronic pain syndrome; Z79.891 Long term (current) use of opiate analgesic; E03.9 Hypothyroidism, unspecified; E78.5 Hyperlipidemia, unspecified; M32.9 Systemic lupus erythematosus, unspecified; K21.9 Gastro-esophageal reflux disease without esophagitis; I50.9 Heart failure, unspecified; M48.061 Spinal stenosis, lumbar region without neurogenic claudication; M51.16 Intervertebral disc disorders with radiculopathy, lumbar region; F17.290 Nicotine dependence, other tobacco product, uncomplicated; E66.01 Morbid (severe) obesity due to excess calories; Z99.81 Dependence on supplemental oxygen; Z88.8 Allergy status to other drugs, medicaments and biological substances; Z88.2 Allergy status to sulfonamides; Z88.0 Allergy status to penicillin; Z98.84 Bariatric surgery status; Z79.82 Long term (current) use of aspirin; Z79.52 Long term (current) use of systemic steroids; Z79.899 Other long term (current) drug therapy ==

== ENCOUNTER → 2019-08-29 | Outpatient (CLI) | payer MEDICARE | LOC: BFHH 17:34 | PROVIDERS: ATTEND Family Medicine | DX: J18.9 Pneumonia, unspecified organism (principal); R30.0 Dysuria ==

== ENCOUNTER → 2019-10-11 | Outpatient (CLI) | payer MEDICARE | LOC: BFHH 15:52 | PROVIDERS: ATTEND Family Medicine | DX: N39.0 Urinary tract infection, site not specified (principal) ==

== ENCOUNTER → 2020-04-14 | Outpatient (CLI) | payer MEDICARE | LOC: GMAM 11:18 | PROVIDERS: ATTEND Family Medicine | DX: B34.2 Coronavirus infection, unspecified (principal); R71.8 Other abnormality of red blood cells; R09.02 Hypoxemia ==

== ENCOUNTER → 2020-07-16 | Outpatient (CLI) | payer MEDICARE | LOC: GMAM 14:10 | PROVIDERS: ATTEND Family Medicine | DX: N39.0 Urinary tract infection, site not specified (principal) ==

== ENCOUNTER → 2020-08-01 | Outpatient (CLI) | payer MEDICARE ==
--- NOTE | 2020-08-02 13:53 | RAD ---
EXAM: Shoulder,Right 2 or More Views INDICATION: 65 years Female, SHOULDER PAIN COMPARISON: 4 views of the right shoulder 03/06/2019 FINDINGS: 4 views of the right shoulder were performed. Portions of the examination are underpenetrated due to overlying soft tissues. No apparent fracture. No joint dislocation. No destructive osseous lesion. Severe degenerative change in the shoulder, mildly progressed from the prior study of 03/06/2019. The acromioclavicular joint is intact. IMPRESSION: Severe degenerative change in the right shoulder without fracture or dislocation. Electronically signed by: Fidelina Lobato MD 08/02/2020 1:51 PM [facility]
== END ==
LOC: RAD 08:46
PROVIDERS: ATTEND Orthopaedic Surgery
DX: M19.011 Primary osteoarthritis, right shoulder (principal)